=== PATIENT | female | born 1960 ===

== ENCOUNTER 2020-01-24 15:33 | Outpatient (CLI) | payer OTHER ==
--- NOTE | 2020-01-24 16:22 | Mammography Report ---
DIGITAL DIAGNOSTIC MAMMOGRAM WITH CAD , 01/24/2020 CLINICAL INFORMATION / INDICATION: This is a short-term follow-up evaluation for left retroareolar ca lcifications. Needle localization and surgical excision is being planned. TECHNIQUE: Digital left mammographic imaging was performed. This examination was interpreted with the benefit of Computer-aided Detection analysis. COMPARISON: Bilateral mammogram, 08/04/2019. Left mammogram, 05/10/2019, 11/09/2018 and 06/11/2018 FINDINGS: Breast Density: There are scattered areas of fibroglandular density. The subcentimeter group of heterogeneous left breast calcifications in the immediate retroareolar reg ion are again noted. These do not appear significantly changed when compared to prior mammograms. IMPRESSION: Stable appearance of left retroareolar calcifications which are moderately suspicious for DCIS. The lack of interval change still does not exclude the possibility of DCIS. Surgical consultat ion is ongoing. Follow up recommendation: Biopsy BI-RADS Category 4: Suspicious for Malignancy. A "normal" or negative report should not discourage follow up or biopsy of a clinically significant f inding. A written summary of these findings will be mailed to the patient. The patient will be entered into a mammography reporting system which will generate a reminder letter for the patient's next appointmen t at the appropriate interval. According to the [employer], yearly mammograms are recommended starting at age 40 and continuing as long as a woman is in good health. Breast MRI is recommended for women with an yaneth roximately 20-25% or greater lifetime risk of breast cancer, including women with a strong family his tory of breast or ovarian cancer and women who have been treated for Hodgkin's disease. Signer Name: Diana Courtney MD Signed: 01/24/2020 4:17 PM Workstation Name: [id number]
== END 2020-01-24 15:34 | disposition home or self-care (01) ==
LOC: SPVWC 15:33
PROVIDERS: ATTEND Surgery
DX: R92.8 Other abnormal and inconclusive findings on diagnostic imaging of breast (principal)

== ENCOUNTER 2020-02-06 08:40 | Day surgery (SDC) | payer OTHER ==
[~2020-02-06 08:40] MED LIST: ceFAZolin/Water 2 GM/20 ML 2 GM/20 ML SYRINGE IV NR
--- NOTE | 2020-02-06 08:53 | Anesthesia Day of Surgery ---
Anesthesia Day of Surgery - Day of Surgery Patient Examined: Yes Patient H&P Reviewed: Yes Patient is NPO: Yes
--- NOTE | 2020-02-06 08:55 | Anesthesia Consultation ---
Anesthesia Consult and Med Hx Date of service: 02/06/20 - Airway Anesthetic Teeth Evaluation: Good, Caps ROM Head & Neck: Adequate Mental/Hyoid Distance: Adequate Mallampati Class: Class III Intubation Access Assessment: Probably Good - Pre-Operative Health Status ASA Pre-Surgery Classification: ASA2 Proposed Anesthetic Plan: General - Pulmonary Hx Respiratory Symptoms: No (+2FS) - Central Nervous System Hx Psychiatric Problems: No - Other Systems Hx Cancer: No Hx Obesity: Yes - Additional Comments Anesthesia Medical History Comments: Limited Turkmen-son at bedside to translate. All questions answered
[2020-02-06] MEDS ORDERED: HYDROmorphone 1 MG/1 ML INJ IV PRN ×2 (09:00)
[2020-02-06] MEDS ORDERED: ONDANSETRON 4 MG/2 ML INJ IV PRN (09:00)
[2020-02-06] MEDS ORDERED: LACTATED RINGERS 1,000 ML IV SCH (09:00)
[2020-02-06] MEDS ORDERED: MIDAZOLAM 2 MG/2 ML INJ IV NR (09:00)
[2020-02-06] MEDS ORDERED: LIDOCAINE (1%) 10 MG/1 ML VIAL 20 ML MDV ONE ×2 (09:03→10:59)
[2020-02-06] MEDS ORDERED: propofoL 200 MG/20 ML VIAL IV ONE (10:57)
[2020-02-06] MEDS ORDERED: HYDROmorphone 1 MG/1 ML INJ ONE (10:57)
[2020-02-06] MEDS ORDERED: LIDOCAINE MPF (2%) 20 MG/1 ML VIAL 5 ML ONE (10:57)
[2020-02-06] MEDS ORDERED: BUPIVACAINE/PF (0.25%) 2.5 MG/ML 10 ML VIAL INFILTRATI ONE ×2 (10:59→11:48)
--- NOTE | 2020-02-06 11:18 | Mammography Report ---
LEFT BREAST NEEDLE LOCALIZATION USING X-RAY GUIDANCE The procedure was explained to the patient and informed consent obtained. PROCEDURE: Using 3 mL of 1% buffered lidocaine, a 25 gauge needle and x-ray guidance, the left breas t/subareolar calcifications were localized with standard needle/wire technique. There were no immedia te complications. INTERPRETATION: 2 images made during the procedure demonstrate the needle to be properly positioned. IMPRESSION: Successful left breast lesion localization as described above. Thank you for allowing us to participate in the care of your patient. Signer Name: Kali Hanks Jr, MD Signed: 02/06/2020 11:14 AM Workstation Name: [id number]
[2020-02-06] MEDS ORDERED: LIDOCAINE (1%) 10 MG/1 ML VIAL 20 ML MDV INFILTRATI ONE (11:48)
[2020-02-06] MEDS ORDERED: WATER FOR IRRIG STERILE 1,500 ML BOTTLE IR ONE (11:50)
[2020-02-06] MEDS ORDERED: ONDANSETRON 4 MG/2 ML INJ ONE (12:04)
--- NOTE | 2020-02-06 12:15 | Short Stay Summary ---
Short Stay Documentation Date of service: 02/06/20 - History H&P: obtained from office - Allergies and Medications Current Medications: Allergies No Known Allergies Allergy (Unverified 01/30/20 16:12) Home Medications Medication Instructions Recorded Confirmed Last Taken Type oxyCODONE /ACETAMINOPHEN [Percocet 1 tab PO Q6HR PRN #12 tablet 02/06/20 Unknown Rx 5/325] Active Medications Hydromorphone HCl (Hydromorphone 1 Mg/1 Ml Inj) 0.25 mg IV Q10MIN PRN PRN Reason: Pain, Moderate (4-6) Stop: 02/06/20 15:00 Hydromorphone HCl (Hydromorphone 1 Mg/1 Ml Inj) 0.5 mg IV Q10MIN PRN PRN Reason: Pain , Severe (7-10) Stop: 02/06/20 16:00 Cefazolin Sodium (Ancef/Sterile Water 2 Gm/20 Ml) 2 gm in 20 mls @ 80 mls/hr IV PREOP NR; Protocol Stop: 02/06/20 20:00 Lactated Ringer's (Lactated Ringers) 1,000 mls @ 125 mls/hr IV DIRECT RAMON Midazolam HCl (Midazolam 2 Mg/2 Ml Inj) 2 mg IV PREOP NR Stop: 02/06/20 23:59 Ondansetron HCl (Ondansetron 4 Mg/2 Ml Inj) 4 mg IV ONCE PRN PRN Reason: Nausea And Vomiting Stop: 02/06/20 16:00 - Brief post op/procedure progress note Date of procedure: 02/06/20 Pre-op diagnosis: Left breast suspicious retroareolar micrcalcifications Post-op diagnosis: same Procedure: Left breast needle loc excisional biopsy Anesthesia: GETA Findings: Left breast specimen with microcalcifications present Surgeon: JENNIFER CAMPOS Estimated blood loss: minimal Pathology: list (left need loc exc biopsy) Specimen disposition: to lab Condition: stable - Disposition Condition at discharge: Good Disposition: - TO HOME OR SELFCARE Short Stay Discharge Plan Activity: other (no heavy lifting) Diet: regular Wound: keep clean and dry (may shower in 48 hours; no baths; wear breast binder) Follow up with: JENNIFER CAMPOS MD [Staff Physician] - 7 Days Prescriptions: oxyCODONE /ACETAMINOPHEN [Percocet 5/325] 1 tab PO Q6HR PRN #12 tablet PRN Reason: Pain
--- NOTE | 2020-02-06 12:19 | Operative Report ---
Operative Report Operative Report: Operative Report: February 06, 2020 Preoperative diagnosis: Left breast suspicious microcalcifications of the upper inner quadrant/retroareolar Postoperative diagnosis: Same Procedure: Left needle localization breast microcalcifications excisional biopsy of the upper inner quadrant/retroareolar Surgeon: Nia Loo MD Distilling Department Supervisor: Abhi Terry MD Anesthesia: General Findings: Left wire and microcalcifications present within radiograph specimen Complications: None EBL: Minimal (less than 50 cc) Disposition: PACU in good condition Indications for operative procedure: This is a 59 year old lady with known abnormal left breast retroareolar suspicious microcalcificationsl. Given location of suspicious microcalcifications not amenable to stereotactic breast biopsy. Recommendations are to proceed with left breast needle localization excisional biopsy to rule out malignancy given suspicous and persistent microcalcifications. She wished to proceed with the above procedure. Procedure in detail: The patient was taken to radiology for wire placement for localization known area of concern. Patient was then taken to the operating room. Gen. anesthesia was administered. Left breast and axilla were prepped and draped in the normal sterile operative fashion. The wire was identified. Timeout was performed. Attention was then taken towards the left breast. A periareolar breast incision was made around the 9:00 position with a 15 blade knife and dissection taken down to subcutaneous tissues. First began raising of the medial flap with removal of the wire from the skin with dissection taken down posteriorly past the wire, followed by raising of the inferior flap, superior flap and lateral flap with all flaps taken down posteriorly past the wire. The wire at known area of microcalcifications located retroareolar and immediately posterior to the nipple. The breast area of concern was appropriately removed posteriorly with the aid of the Bovie cautery. The wire was not encountered. Specimen was marked and then sent to pathology and radiology; radiograph specimen with wire and microcalcifications present. Breast cavity was irrigated and hemostasis was obtained. The posterior deep breast tissues were approximated and closed using interrupted 3-0 Vicryl. The subcutaneous tissues were approximated and closed using interrupted 3-0 Vicryl followed by closing of the skin with a running 4-0 Monocryl and skin affix. The patient tolerated surgery very well and she was awaken from anesthesia without any complication and transported to PACU in good condition.
[2020-02-06] MEDS ORDERED: NITROGLYCERIN 2% OINT 1 GM TP SCH (12:21)
--- NOTE | 2020-02-06 12:33 | Mammography Report ---
MAMMOGRAPHY SURGICAL SPECIMEN HISTORY: Post excisional biopsy COMPARISON: The localization performed earlier today FINDINGS: 3 mammographic images of the surgical specimen are presented which which include the locali zation wire and subtle suspicious calcifications which were targeted on needle localization. Please c orrelate with pathology report for surgical margins. IMPRESSION: Successful excisional biopsy. Signer Name: Kali Hanks Jr, MD Signed: 02/06/2020 12:29 PM Workstation Name: [id number]
[2020-02-06 13:27] VITALS: BP 127/71
--- NOTE | 2020-02-06 16:11 | Post Anesthesia Evaluation ---
- Post Anesthesia Evaluation Patient Participated: Yes Airway Patent: Yes Stable Respiratory Function: Yes Nausea/Vomiting: No Temp > 96.8F: Yes Pain Manageable: Yes Adequeate Hydration: Yes Anesthesia Complications: No Block Receding Appropriately: Not Applicable Patient on Ventilator: No
== END 2020-02-06 08:41 | disposition home or self-care (01) ==
LOC: OR 08:40
PROVIDERS: ATTEND Surgery
DX: R92.0 Mammographic microcalcification found on diagnostic imaging of breast (principal); Z20.828 Contact with and (suspected) exposure to other viral communicable diseases; G43.909 Migraine, unspecified, not intractable, without status migrainosus; E66.9 Obesity, unspecified; M19.90 Unspecified osteoarthritis, unspecified site; Z79.899 Other long term (current) drug therapy; Z98.890 Other specified postprocedural states; Z68.33 Body mass index [BMI] 33.0-33.9, adult
CPT/HCPCS: 19125; 19281; 76098; 88307; J0690; J1170; J2250; J2405; J2704; J7120; U0003

== ENCOUNTER 2020-12-20 16:08 | Outpatient (CLI) | payer OTHER ==
--- NOTE | 2020-12-21 15:19 | Mammography Report ---
DIGITAL SCREENING MAMMOGRAM WITH CAD, 12/20/2020 CLINICAL INFORMATION / INDICATION: Routine screening mammography. SCREENING MAMMO TECHNIQUE: Digital bilateral 2D mammography was obtained in the craniocaudal and mediolateral obliqu e projections. This examination was interpreted with the benefit of Computer-Aided Detection analysis . COMPARISON: 06/02/2018 FINDINGS: Breast Density: There are scattered areas of fibroglandular density. No dominant mass, suspicious calcifications, or architectural distortion in either breast. Left breast scar noted. IMPRESSION: No mammographic evidence of malignancy. Follow up recommendation: Routine yearly BI-RADS Category 2: Benign. A "normal" or negative report should not discourage follow up or biopsy of a clinically significant f inding. A written summary of these findings will be mailed to the patient. The patient will be entered into a mammography reporting system which will generate a reminder letter for the patient's next appointmen t at the appropriate interval. The [employer] recommends yearly mammograms starting at age 40 and continuing as l edna as a woman is in good health. Breast MRI is recommended for women with an approximate 20-25% or greater lifetime risk of breast cancer, including women with a strong family history of breast or ova puma cancer or who have been treated for Hodgkin's disease. Signer Name: Marco Khan MD Signed: 12/21/2020 3:15 PM Workstation Name: [id number]
== END 2020-12-20 16:09 | disposition home or self-care (01) ==
LOC: SPVWC 16:08
DX: Z12.31 Encounter for screening mammogram for malignant neoplasm of breast (principal)
CPT/HCPCS: 77067